=== PATIENT | male | born 1945 | race Caucasian/White ===

== ENCOUNTER 2017-03-01 08:48 | Emergency (ER) | payer MEDICARE, BC ==
[~2017-03-01] VITALS: Ht 175.3 cm; Wt 130.0 kg
[~2017-03-01 08:48] MED LIST: ADULT ASPIRIN E81 MG PO; ANTIVERT PO; BENZONATATE200 MG PO; CALCIUM600 M2 PO; DOXYCYCL HYC100 MG PO; FLEXERIL10 MG PO; GLIMEPIRIDE4 MG PO; HYDRALAZINE25 MG PO; HYDROCHLOROT25 MG PO; IBUPROFEN400 MG PO; KLOR-CON M2020 MEQ PO; LABETALOL100 MG PO; LANTUS100 MG/ML IM; LANTUS100 MG/ML SC; LASIX 20 MG20 MG/TAB PO; LIPITOR40 MG PO; LOPID600 MG PO; LOSARTAN POT50 MG PO; METFORMIN HCL1000 MG PO; METOPROL TAR100 MG PO; NIFEDIPINE60 MG PO; OMEPRAZOLE20 MG PO; ONE TOUCH ULTRA 100 SC; PREDNISONE10 MG PO; VITAMIN C500 M1 PO; ZITHROMAX250 MG PO
[2017-03-01 09:28] LABS: HEMATOCRIT 34.7 % (39.0-50.0); HEMOGLOBIN 11.1 g/dl (14.0-18.0); IMMATURE GRANULOCYTES 0.3 % (0.0-1.0); MEAN CELL VOLUME 82.6 fL CALC (80.0-100.0); MEAN CORPUSCULAR HGB 26.4 pG CALC (26.0-32.0); NEUT# 5.16 thou/uL (1.82-7.42); RED BLOOD COUNT 4.2 mill/uL (4.70-6.10); RED CELL DISTRI WIDTH 15.3 % (11.5-15.5)
[2017-03-01 09:49] LABS: ALBUMIN 4.6 g/dL (3.2-5.0); ALKALINE PHOSPHATASE 83 u/l (38-126); ANION GAP 19 (6-22 (CALC)); BILIRUBIN, TOTAL 0.5 mg/dL (0.0-1.4); BUN 13 mg/dL (8-23); BUN/CREATININE RATIO 18 (12-20 (CALC)); CALCIUM 9.8 mg/dL (8.4-10.2); CARBON DIOXIDE 22 mmol/l (22-30); CHLORIDE 107 mmol/l (95-108); CREATININE 0.7 mg/dL (0.7-1.3); GFR > 60 ML/MIN (>=60 (CALC)); GFR FOR AFR.AMER. > 60 ML/MIN (>=60 (CALC)); GLUCOSE 138 mg/dL (82-115); POTASSIUM 4.1 mmol/l (3.5-5.1); SGOT/AST 27 u/l (19-48); SGPT/ALT 35 u/l (11-66); SODIUM 144 mmol/l (137-146); TOTAL PROTEIN 7.8 g/dL (6.3-8.2)
[2017-03-01] MEDS ORDERED: CRESTOR40 MG PO (10:57)
[2017-03-01] MEDS ORDERED: CARVEDILOL25 MG PO (10:59)
[2017-03-01] MEDS ORDERED: FUROSEMIDE20 MG PO (11:08)
[2017-03-01] MEDS ORDERED: PAXIL40 MG PO (11:14)
[2017-03-01 11:32] VITALS: BP 160/70
== END 2017-03-01 11:34 | disposition home or self-care (01) ==
LOC: ED 08:48
PROVIDERS: Emergency Medicine
DX: I50.9 Heart failure, unspecified (principal); R06.02 Shortness of breath; I10 Essential (primary) hypertension; E11.9 Type 2 diabetes mellitus without complications; Z79.84 Long term (current) use of oral hypoglycemic drugs; Z95.0 Presence of cardiac pacemaker

== ENCOUNTER 2017-04-24 05:56 | Observation (INO) | payer MEDICARE, BC ==
[~2017-04-24] VITALS: Ht 175.3 cm; Wt 130.4 kg
[~2017-04-24 05:56] MED LIST changes: +CARVEDILOL25 MG PO; +CRESTOR40 MG PO; +FUROSEMIDE20 MG PO; -LANTUS100 MG/ML SC; +LANTUS100 UNIT/M SC; +PAXIL40 MG PO
[2017-04-24] MEDS ORDERED: AMLODIPINE5 MG PO (06:17)
--- NOTE | 2017-04-24 06:17 | NUR ---
PT AMBULATED TO ROOM
--- NOTE | 2017-04-24 06:26 | NUR ---
Pt on too, setting in semi-fowlers position, spouse with patient. States was diagnosed with flu last thursday. Given Tamiflu and not getting better. Ears, throat, painful.
[2017-04-24 07:02] LABS: INFLUENZA A NONE DETECTED (NONE DETECT); INFLUENZA B NONE DETECTED (NONE DETECT)
--- NOTE | 2017-04-24 07:15 | NUR ---
PT RESTING ON STRETCHER, INTERMITTENT COUGH NOTED, DENIES COMPLAINTS, COMFORT MEASURES PROVIDED, CALL DELEON WITHIN REACH
[2017-04-24 07:17] LABS: HEMATOCRIT 35.3 % (39.0-50.0); HEMOGLOBIN 11.3 g/dl (14.0-18.0); IMMATURE GRANULOCYTES 0.2 % (0.0-1.0); MEAN CELL VOLUME 80.6 fL CALC (80.0-100.0); MEAN CORPUSCULAR HGB 25.8 pG CALC (26.0-32.0); NEUT# 2.55 thou/uL (1.82-7.42); RED BLOOD COUNT 4.38 mill/uL (4.70-6.10); RED CELL DISTRI WIDTH 15.8 % (11.5-15.5)
[2017-04-24 07:27] LABS: ALBUMIN 4.1 g/dL (3.2-5.0); ALKALINE PHOSPHATASE 87 u/l (38-126); ANION GAP 19 (6-22 (CALC)); BILIRUBIN, TOTAL 0.3 mg/dL (0.0-1.4); BUN 13 mg/dL (8-23); BUN/CREATININE RATIO 15 (12-20 (CALC)); CARBON DIOXIDE 27 mmol/l (22-30); CHLORIDE 100 mmol/l (95-108); CREATININE 0.8 mg/dL (0.7-1.3); GFR > 60 ML/MIN (>=60 (CALC)); GFR FOR AFR.AMER. > 60 ML/MIN (>=60 (CALC)); POTASSIUM 4.4 mmol/l (3.5-5.1); SGOT/AST 62 u/l (19-48); SGPT/ALT 51 u/l (11-66); SODIUM 142 mmol/l (137-146); TOTAL PROTEIN 6.8 g/dL (6.3-8.2)
--- NOTE | 2017-04-24 08:00 | NUR ---
PT RESTIGN IN BED AWARE OF PENMDING ADMISSION, ROOM ASSIGNMENT REC'D, CALL DELEON WITHIN REACH
--- NOTE | 2017-04-24 08:45 | NUR ---
PT SET UP WITH AM JUAN TOOK AM HOME MEDICATIONS PER PT, CALL DELEON WITHIN REACH
--- NOTE | 2017-04-24 09:12 | NUR ---
Admission Note Report Given to: AILEEN Transported by: Wheelchair X Stretcher Transported with: X Nurse Transporter X Patent IV O2 X Marketing Systems Manager
--- NOTE | 2017-04-24 09:15 | NUR ---
FROM ER VIA STRETCHER ACCOMPANIED BY SHARON REGAN. AMBULTED TO BED WITH STEADY GAIT. RESPS EVEN AND UNLABORED ON ROOM AIR, TELE MONITOR IN PLACE. #20 RAC INFUSING WITHOUT DIFFICULTY, SITE APPEARS HEALTHY. PO FLUIDS OFFERED. DENIES PAIN OR DISCOMFORT. ORIENTED TO ROOM AND CALL SYSTEM. SAFETY PRECAUTIONS REINFORCED. BED IN LOWEST POSITION WITH WHEELS LOCKED. CALL LIGHT WITHIN REACH. ENCOURAGED PT TO CALL FOR ANY NEEDS.
[2017-04-24 09:28] VITALS: BP 146/76
[2017-04-24 11:04] VITALS: BP 173/68
--- NOTE | 2017-04-24 12:00 | NUR ---
SITTING ON EDGE OF BED EATING LUNCH. RESPS EVEN AND UNLABORED ON ROOM AIR, TELE MONITOR IN PLACE. VOICES NO NEEDS AT THIS TIME. AT BEDSIDE. CALL LIGHT WITHIN REACH. ENCOURAGED PT AND TO CALL FOR ANY NEEDS.
[2017-04-24] MEDS ORDERED: LANTUS100 UNIT/M SC (12:03)
[2017-04-24 12:19] LABS: CHOLESTEROL HDL RATIO 4.6 (<4.4 (CALC))
[2017-04-24 14:35] VITALS: BP 163/62
--- NOTE | 2017-04-24 15:40 | NUR ---
Visited pt room for rounding. Pt said abx must have worked real good because he is feeling 100% better. Explained to pt that he will still get abx for a few more days to make sure he gets enough meds to kill entire infection. Also let pt know that he is currently on doxycycline and reviewed instructions on how to take it (w/ glass of water, do not lie down for 30 mins, separate from antacids/anything containing calcium for 2 hrs) in case he gets discharged on it. Reviewed that he can get diarrhea from abx and that taking meds w/ food or probiotics may help. Also let pt know that lantus has been substituted for levemir, and atorvastatin has been substituted for atorvastatin. Pt said that he was taken off of atorvastatin b/c it gave him muscle pain, but said is fine to take it for one day and should not be a problem. Also let him know that amlodipine, calcium, vit C, potassium, gemfibrozil, and omeprazole have all been held. Explained that he is currently being prescribed a steroid which can increase blood sugar and he said that he will monitor his blood sugar and adjust his lantus if necessary once back home. No questions or additional concerns.
[2017-04-24 15:45] VITALS: BP 167/79
--- NOTE | 2017-04-24 15:50 | NUR ---
DR BENDER IN WITH PT, NEW ORDERS RECEIVED.
--- NOTE | 2017-04-24 16:00 | NUR ---
SITTING IN BEDSIDE CHAIR WITH EYES CLOSED, AWAKENS EASILY. RESPS EVEN AND UNLABORED ON ROOM AOR, TELE MONITOR IN PLACE. DENIES PAIN OR DISCOMFORT. CALL LIGHT WITHIN REACH. WILL CONTINUE TO MONITOR.
[2017-04-24 19:03] VITALS: BP 164/68
--- NOTE | 2017-04-24 19:55 | NUR ---
PT OOB IN BEDSIDE CHAIR. PT DENIES PAIN OR DISCOMFORT. RESP EVEN AND UNLABORED; NO DISTRESS NOTED. TELE IN PLACE. ABD DISTENDED;SOFT. ACTIVE BOWEL SOUNDS NOTED. TRACE ANKLE EDEMA NOTED BILAT. PEDAL PULSES PALPATED BILAT. IV RAC FLUSHED WITHOUT DIFFICULTY. SAFETY PRECAUTIONS REINFORCED. FREQUENT ROUNDS MADE. CALL LIGHT WITHIN REACH.
--- NOTE | 2017-04-25 00:20 | NUR ---
RESP EVEN AND UNLABORED WITH CPAP IN PLACE. NO DISTRESS NOTED. TELE IN PLACE. CALL LIGHT WITHIN REACH.
--- NOTE | 2017-04-25 04:05 | NUR ---
TELE IN PLACE. RESP EVEN AND UNLABORED; NO DISTRESS NOTED. ASSESSMENT UNCHANGED. CALL LIGHT WITHIN REACH.
[2017-04-25 05:25] VITALS: BP 151/75
[2017-04-25 06:29] LABS: HEMATOCRIT 36.4 % (39.0-50.0); HEMOGLOBIN 11.6 g/dl (14.0-18.0); IMMATURE GRANULOCYTES 0.2 % (0.0-1.0); MEAN CELL VOLUME 80.7 fL CALC (80.0-100.0); MEAN CORPUSCULAR HGB 25.7 pG CALC (26.0-32.0); MEAN CORPUSCULAR HGB CONC 31.9 g/L CALC (32.0-36.0); NEUT# 3.38 thou/uL (1.82-7.42); RED BLOOD COUNT 4.51 mill/uL (4.70-6.10); RED CELL DISTRI WIDTH 15.7 % (11.5-15.5)
[2017-04-25 06:39] LABS: ANION GAP 20 (6-22 (CALC)); BUN 17 mg/dL (8-23); BUN/CREATININE RATIO 22 (12-20 (CALC)); CARBON DIOXIDE 23 mmol/l (22-30); CHLORIDE 102 mmol/l (95-108); CREATININE 0.8 mg/dL (0.7-1.3); GFR > 60 ML/MIN (>=60 (CALC)); GFR FOR AFR.AMER. > 60 ML/MIN (>=60 (CALC)); MAGNESIUM 1.7 mg/dL (1.6-2.3); POTASSIUM 4.4 mmol/l (3.5-5.1); SODIUM 141 mmol/l (137-146)
--- NOTE | 2017-04-25 07:00 | NUR ---
RECEIVED BEDSIDE REPORT FROM MANDI LAZAR. SITTING IN BEDSIDE CHAIR WATCHING TV. RESPS EVEN AND UNLABORED ON ROOM AIR, TELE MONITOR IN PLACE. VOICES NO NEEDS AT THIS TIME. PLAN OF CARE DISCUSSED. SAFETY PRECAUTIONS REINFORCED. BED IN LOWEST POSITION WITH WHEELS LOCKED. CALL LIGHT WITHIN REACH. ENCOURAGED PT TO CALL FOR ANY NEEDS.
[2017-04-25 07:53] VITALS: BP 178/66
--- NOTE | 2017-04-25 10:00 | NUR ---
AMBULATING IN HALLWAY WITH STEADY GAIT ACCOMPANIED BY . RESPS EVEN AND UNLABORED ON ROOM AIR, TELE MONITOR IN PLACE. TOLERATING WITHOUT DIFFICULTY. CALL LIGHT WITHIN REACH.
[2017-04-25 11:02] VITALS: BP 182/71
--- NOTE | 2017-04-25 12:10 | NUR ---
DR BENDER IN WITH PT, NEW ORDERS RECEIVED.
[2017-04-25] MEDS ORDERED: ROBITUSSIN AC10 ML PO (12:58)
[2017-04-25] MEDS ORDERED: PREDNISONE10 MG PO (12:58)
[2017-04-25] MEDS ORDERED: VIBRAMYCIN100 M2 PO (12:58)
--- NOTE | 2017-04-25 13:45 | NUR ---
Discharge instructions given. Patient verbalizes understanding of same. Discharged in stable condition via Wheelchair to Home with spouse. All belongings sent with pt.
== END 2017-04-25 13:45 | disposition home or self-care (01) ==
LOC: ED 05:56 → ED-I 07:23 → ED 07:35 → MS2 07:36
PROVIDERS: Emergency Medicine; Nurse Practitioner Family; ADMIT Internal Medicine; ATTEND Internal Medicine
DX: J18.9 Pneumonia, unspecified organism (principal); E11.9 Type 2 diabetes mellitus without complications; G47.33 Obstructive sleep apnea (adult) (pediatric); I10 Essential (primary) hypertension; D64.9 Anemia, unspecified; I25.10 Atherosclerotic heart disease of native coronary artery without angina pectoris; E78.5 Hyperlipidemia, unspecified; R42 Dizziness and giddiness; Z95.0 Presence of cardiac pacemaker; Z79.4 Long term (current) use of insulin; Z87.891 Personal history of nicotine dependence; Z91.14 Patient's other noncompliance with medication regimen; Z68.41 Body mass index [BMI] 40.0-44.9, adult
CPT/HCPCS: G0378

== ENCOUNTER 2017-05-16 19:42 | Emergency (ER) | payer MEDICARE, BC ==
[~2017-05-16] VITALS: Ht 175.3 cm; Wt 132.2 kg
[~2017-05-16 19:42] MED LIST changes: +AMLODIPINE5 MG PO; +ROBITUSSIN AC10 ML PO; +VIBRAMYCIN100 M2 PO
[2017-05-16 22:39] LABS: INFLUENZA A NONE DETECTED (NONE DETECT); INFLUENZA B NONE DETECTED (NONE DETECT)
[2017-05-17] MEDS ORDERED: AMOXICILLIN500 MG PO (00:12)
[2017-05-17] MEDS ORDERED: CODEINE/GUAIFEN1 SOL PO (00:12)
[2017-05-17 00:45] VITALS: BP 168/75
== END 2017-05-17 00:45 | disposition home or self-care (01) ==
LOC: ED 19:42
PROVIDERS: Emergency Medicine
DX: J40 Bronchitis, not specified as acute or chronic (principal); R05 Cough; R50.9 Fever, unspecified; R09.89 Other specified symptoms and signs involving the circulatory and respiratory systems

== ENCOUNTER 2020-06-30 20:05 | Observation (INO) | payer MEDICARE, BC ==
[~2020-06-30] VITALS: Ht 175.3 cm; Wt 132.0 kg
[~2020-06-30 20:05] MED LIST changes: +AMOXICILLIN500 MG PO; +CODEINE/GUAIFEN1 SOL PO
[2020-06-30 20:56] LABS: HEMATOCRIT 38.4 % (39.0-50.0); HEMOGLOBIN 12.4 g/dl (14.0-18.0); IMMATURE GRANULOCYTES 0.3 % (0.0-5.0); MEAN CELL VOLUME 88.7 fL CALC (80.0-100.0); MEAN CORPUSCULAR HGB 28.6 pG CALC (26.0-32.0); MEAN CORPUSCULAR HGB CONC 32.3 g/dL CAL (32.0-36.0); NEUT# 3.61 thou/uL (1.82-7.42); RED BLOOD COUNT 4.33 mill/uL (4.70-6.10); RED CELL DISTRI WIDTH 14.7 % (11.5-15.5)
[2020-06-30 21:11] LABS: ALBUMIN 4.8 g/dL (3.2-5.0); ALKALINE PHOSPHATASE 135 u/l (38-126); ANION GAP 16 (6-22 (CALC)); BILIRUBIN, TOTAL 0.7 mg/dL (0.0-1.4); BUN 18 mg/dL (8-23); BUN/CREATININE RATIO 18 (12-20 (CALC)); CARBON DIOXIDE 26 mmol/l (22-30); CHLORIDE 103 mmol/l (95-108); GFR > 60 ML/MIN (>=60 (CALC)); GFR FOR AFR.AMER. > 60 ML/MIN (>=60 (CALC)); POTASSIUM 4.2 mmol/l (3.5-5.1); SGOT/AST 70 u/l (19-48); SODIUM 140 mmol/l (137-146); TOTAL PROTEIN 8.6 g/dL (6.3-8.2)
[2020-06-30 21:13] LABS: ACT PARTIAL THROMBO TIME 26.3 SECONDS (20.0-32.5); INTERNATIONAL NORMALIZED RATIO 1.2 RATIO (0.7-1.3); PROTHROMBIN TIME 12.6 SECONDS (9.0-12.5)
[2020-06-30 21:22] LABS: MYOGLOBIN 70 ng/mL (0 - 121)
[2020-06-30 21:26] LABS: D-DIMER 0.32 mg/L (0.19-0.60)
[2020-06-30] MEDS ORDERED: GUANFACINE2 MG PO (21:33)
[2020-06-30] MEDS ORDERED: VALSARTAN320 MG (21:33)
[2020-06-30] MEDS ORDERED: LEVOTHYROXIN50 MCG PO (21:33)
[2020-06-30 23:45] VITALS: BP 148/62
[2020-07-01 04:25] VITALS: BP 153/63
[2020-07-01 07:20] LABS: ANION GAP 14 (6-22 (CALC)); BUN 17 mg/dL (8-23); BUN/CREATININE RATIO 21 (12-20 (CALC)); CARBON DIOXIDE 25 mmol/l (22-30); CHLORIDE 102 mmol/l (95-108); CREATININE 0.8 mg/dL (0.7-1.3); GFR > 60 ML/MIN (>=60 (CALC)); GFR FOR AFR.AMER. > 60 ML/MIN (>=60 (CALC)); POTASSIUM 3.9 mmol/l (3.5-5.1); SODIUM 138 mmol/l (137-146)
[2020-07-01 08:00] VITALS: BP 169/70
[2020-07-01] MEDS ORDERED: DIOVAN320 MG PO (08:26)
[2020-07-01] MEDS ORDERED: LANTUS100 UNIT/M SC (08:26)
[2020-07-01] MEDS ORDERED: GUANFACINE2 MG PO (08:26)
[2020-07-01] MEDS ORDERED: CARVEDILOL25 MG PO (08:26)
[2020-07-01] MEDS ORDERED: AMLODIPINE BESY10 MG PO (08:27)
[2020-07-01 10:43] VITALS: BP 179/70
== END 2020-07-01 11:31 | disposition home or self-care (01) ==
LOC: ED 20:05 → ED-I 22:34 → ED 22:43 → MS2 22:44
PROVIDERS: Family Medicine; ADMIT Internal Medicine; ATTEND Internal Medicine
DX: I11.0 Hypertensive heart disease with heart failure (principal); I50.9 Heart failure, unspecified; E11.9 Type 2 diabetes mellitus without complications; I25.10 Atherosclerotic heart disease of native coronary artery without angina pectoris; E03.9 Hypothyroidism, unspecified; I49.5 Sick sinus syndrome; G47.33 Obstructive sleep apnea (adult) (pediatric); E78.5 Hyperlipidemia, unspecified; Z95.0 Presence of cardiac pacemaker; Z79.4 Long term (current) use of insulin; Z86.79 Personal history of other diseases of the circulatory system; Z20.822 Contact with and (suspected) exposure to COVID-19
CPT/HCPCS: G0378; J1650

== ENCOUNTER 2022-05-23 20:02 | Emergency (ER) | payer MEDICARE, BC ==
[~2022-05-23] VITALS: Ht 175.3 cm; Wt 129.0 kg
[2022-05-23] VITALS (9 sets, daily range): BP systolic 137–156; BP diastolic 49–72
[~2022-05-23 20:02] MED LIST changes: +AMLODIPINE BESY10 MG PO; +DIOVAN320 MG PO; +GUANFACINE2 MG PO; +LEVOTHYROXIN50 MCG PO; +VALSARTAN320 MG
[2022-05-23 21:55] LABS: BASO% 0.6 % (0-3); EOS% 2.8 % (0-8); HEMATOCRIT 37.6 % (39.0-50.0); IMMATURE GRANULOCYTES 0.2 % (0.0-5.0); MEAN CELL VOLUME 88.7 fL CALC (80.0-100.0); MEAN CORPUSCULAR HGB 28.3 pG CALC (26.0-32.0); MEAN CORPUSCULAR HGB CONC 31.9 g/dL CAL (32.0-36.0); MONO% 11.5 % (2-13); NEUT# 3.73 thou/uL (1.82-7.42); NEUT% 57.9 % (42-76); RED BLOOD COUNT 4.24 mill/uL (4.70-6.10); RED CELL DISTRI WIDTH 13.5 % (11.5-15.5)
[2022-05-23 22:07] LABS: ALBUMIN 4.7 g/dL (3.2-5.0); ALKALINE PHOSPHATASE 109 u/l (38-126); ANION GAP 16 (6-22 (CALC)); BUN 29 mg/dL (8-23); BUN/CREATININE RATIO 20 (12-20 (CALC)); CARBON DIOXIDE 24 mmol/l (22-30); CHLORIDE 103 mmol/l (95-108); CREATININE 1.4 mg/dL (0.7-1.3); GFR FOR AFR.AMER. 59 ML/MIN (>=60 (CALC)); GFR OTHER RACES 49 ML/MIN (>=60 (CALC)); POTASSIUM 4.8 mmol/l (3.5-5.1); SGOT/AST 55 u/l (19-48); SODIUM 139 mmol/l (137-146); TOTAL PROTEIN 8.2 g/dL (6.3-8.2)
[2022-05-23 22:08] LABS: BILIRUBIN, TOTAL 0.3 mg/dL (0.2-1.3)
[2022-05-23] MEDS ORDERED: MECLIZINE25 MG PO (23:35)
[2022-05-24 00:04] VITALS: BP 143/51
== END 2022-05-24 00:09 | disposition home or self-care (01) ==
LOC: ED 20:02
PROVIDERS: Family Medicine
DX: R42 Dizziness and giddiness (principal); I10 Essential (primary) hypertension; E11.9 Type 2 diabetes mellitus without complications; E78.00 Pure hypercholesterolemia, unspecified; Z79.4 Long term (current) use of insulin; Z20.822 Contact with and (suspected) exposure to COVID-19

== ENCOUNTER 2023-05-05 05:23 | Observation (INO) | payer MEDICARE, BC ==
[2023-05-05] VITALS (9 sets, daily range): BP systolic 134–166; BP diastolic 54–75
[~2023-05-05] VITALS: Ht 175.3 cm; Wt 145.6 kg
[~2023-05-05 05:23] MED LIST changes: +MECLIZINE25 MG PO
--- NOTE | 2023-05-05 05:30 | NUR ---
PATIENT TO ROOM 8 VIA WHEELCHAIR. AT [facility].
--- NOTE | 2023-05-05 06:30 | NUR ---
PATIENT RESTING, AT BEDSIDE. AWAITING RESULTS.
[2023-05-05 07:42] LABS: BASO% 0.4 % (0-3); EOS% 1.5 % (0-8); HEMATOCRIT 36.2 % (39.0-50.0); HEMOGLOBIN 11.5 g/dl (14.0-18.0); IMMATURE GRANULOCYTES 0.2 % (0.0-5.0); LYMPH% 13.6 % (15-41); MEAN CELL VOLUME 86.8 fL CALC (80.0-100.0); MEAN CORPUSCULAR HGB 27.6 pG CALC (26.0-32.0); MEAN CORPUSCULAR HGB CONC 31.8 g/dL CAL (32.0-36.0); MONO% 10.9 % (2-13); NEUT# 7.31 thou/uL (1.82-7.42); NEUT% 73.4 % (42-76); RED BLOOD COUNT 4.17 mill/uL (4.70-6.10); RED CELL DISTRI WIDTH 14.9 % (11.5-15.5)
[2023-05-05 08:07] LABS: INTERNATIONAL NORMALIZED RATIO 1.3 RATIO (0.7-1.3); PROTHROMBIN TIME 12.2 SECONDS (9.0-12.5)
[2023-05-05 08:12] LABS: ALBUMIN 4.4 g/dL (3.2-5.0); ALKALINE PHOSPHATASE 137 u/l (38-126); ANION GAP 14 (6-22 (CALC)); BILIRUBIN, TOTAL 0.5 mg/dL (0.2-1.3); BUN 19 mg/dL (8-23); BUN/CREATININE RATIO 15 (12-20 (CALC)); CARBON DIOXIDE 26 mmol/l (22-30); CHLORIDE 106 mmol/l (95-108); CREATININE 1.2 mg/dL (0.7-1.3); GFR FOR AFR.AMER. > 60 ML/MIN (>=60 (CALC)); GFR OTHER RACES 58 ML/MIN (>=60 (CALC)); POTASSIUM 4.7 mmol/l (3.5-5.1); SGOT/AST 46 u/l (19-48); SODIUM 142 mmol/l (137-146); TOTAL PROTEIN 7.8 g/dL (6.3-8.2)
[2023-05-05] MEDS ORDERED: FUROSEMIDE 40 MG/4 ML SDV IV ONE (08:55)
--- NOTE | 2023-05-05 10:00 | NUR ---
PT REPORT RECIEVED FROM MORNING NURSE. CARE IS ACCEPTED. VSS. PT DENIESN ANY NEEDS AT THIS TIME.
[2023-05-05] MEDS ORDERED: OZEMPIC2 MG SC (10:24)
--- NOTE | 2023-05-05 10:30 | NUR ---
PT MEDICATED WITH IV LASIX TOLERATED WELL, IV SITE INTACT. CALL DELEON IN REACH
[2023-05-05] MEDS ORDERED: MAGNESIUM HYDROXIDE 30 ML UDC PO PRN (11:00)
[2023-05-05] MEDS ORDERED: ACETAMINOPHEN 325 MG/TAB PO PRN (11:00)
--- NOTE | 2023-05-05 11:06 | NUR ---
PT TJ DON THE NEEDS FOR A URINE SAMPL. URINE CUP PROVIDED.
[2023-05-05] MEDS ORDERED: LEVOTHYROXINE SODIUM 50 MCG/TAB PO SCH (12:00)
[2023-05-05] MEDS ORDERED: amLODIPine BESYLATE 5 MG/TAB PO SCH (12:00)
[2023-05-05] MEDS ORDERED: PANTOPRAZOLE SODIUM Sesquihydr 40 MG/TAB PO SCH (12:00)
[2023-05-05] MEDS ORDERED: metFORMIN HYDROCHLORIDE 500 MG/TAB PO SCH (12:00)
[2023-05-05] MEDS ORDERED: ASPIRIN EC 81 MG/TAB PO SCH (12:00)
[2023-05-05] MEDS ORDERED: PARoxetine 10 MG/TAB PO SCH (12:00)
--- NOTE | 2023-05-05 12:00 | NUR ---
PT SITTING IN BED. VSS. PT DENIES ANY NEEDS TA THIS TIME.
[2023-05-05] MEDS ORDERED: LOSARTAN Potassium 50 MG/TAB PO SCH (13:00)
--- NOTE | 2023-05-05 13:00 | NUR ---
PT UODATED ON CONTINUED WAIT TIME. PT STATES UNDERSTANDING AND DENIES ANY NEEDS AT THIS TIME.
--- NOTE | 2023-05-05 14:14 | NUR ---
PT RESTING IN BED. VSS. AT BEDSIDE. PT DENIES ANY NEEDS AT THSI TIME.
--- NOTE | 2023-05-05 15:38 | NUR ---
pt report called and given to selin on medsurg. pt being taken up via wheelchair.
[2023-05-05] MEDS ORDERED: FUROSEMIDE 40 MG/4 ML SDV IV SCH (16:00)
--- NOTE | 2023-05-05 17:00 | NUR ---
PT ARRIVED TO THE UNIT AOX4, BP 166/75, HR 69, O2 AT 95% ON RA, TEMP 97.6. RESPIRATIONS ARE EVEN AND UNLABORED, LUNGS ARE DIM BILATERAL BASES, +1 PITTING EDEMA NOTED TO BILATERAL FEET, PEDAL PULSES PRESENT TO TOUCH, PT DENIES PAIN AT THIS TIME.
[2023-05-05 17:38] LABS: URINE BILIRUBIN - DIPSTICK Negative (NEGATIVE); URINE BLOOD DIPSTICK Negative (NEGATIVE); URINE COLOR Yellow; URINE GLUCOSE - DIPSTICK Negative (NEGATIVE); URINE KETONE Negative (NEGATIVE); URINE LEUK ESTERASE Negative (NEGATIVE); URINE NITRITE - DIPSTICK Negative (Negative); URINE PH 5.5 (4.5-8.0); URINE PROTEIN - DIPSTICK Negative (NEG-TRACE); URINE SPECIFIC GRAVITY 1.015; URINE UROBILINOGEN - DIPSTICK 0.2 E.U./dL (0.2)
--- NOTE | 2023-05-05 19:50 | NUR ---
Bedside report completed for this patient and sitting up in chair at bedside with no distress noted. Call light within reah. Will continue to observe.
[2023-05-05] MEDS ORDERED: ENOXAPARIN SODIUM 40 MG/0.4 ML SYR SC SCH (21:00)
[2023-05-05] MEDS ORDERED: CARVEDILOL 25 MG/TAB PO SCH (21:00)
[2023-05-05] MEDS ORDERED: INSULIN DETEMIR 100 UNITS/ML SC SCH (21:00)
[2023-05-06 04:52] VITALS: BP 133/52
--- NOTE | 2023-05-06 05:14 | NUR ---
PT DAILY WEIGHT WAS NOT OBTAINED DUE TO UNIT STANDING SCALE NOT WORKING. SHEREEN ZHU NOTIFIED.
[2023-05-06 07:10] LABS: BASO% 0.6 % (0-3); EOS% 2.3 % (0-8); HEMATOCRIT 33.4 % (39.0-50.0); HEMOGLOBIN 10.7 g/dl (14.0-18.0); IMMATURE GRANULOCYTES 0.1 % (0.0-5.0); MEAN CELL VOLUME 86.3 fL CALC (80.0-100.0); MEAN CORPUSCULAR HGB 27.6 pG CALC (26.0-32.0); MONO% 13.9 % (2-13); NEUT# 3.8 thou/uL (1.82-7.42); NEUT% 55.1 % (42-76); RED BLOOD COUNT 3.87 mill/uL (4.70-6.10); RED CELL DISTRI WIDTH 14.6 % (11.5-15.5)
[2023-05-06 08:03] LABS: ALKALINE PHOSPHATASE 102 u/l (38-126); ANION GAP 13 (6-22 (CALC)); BILIRUBIN, TOTAL 0.6 mg/dL (0.2-1.3); BUN 23 mg/dL (8-23); BUN/CREATININE RATIO 18 (12-20 (CALC)); CARBON DIOXIDE 26 mmol/l (22-30); CHLORIDE 104 mmol/l (95-108); CREATININE 1.3 mg/dL (0.7-1.3); GFR FOR AFR.AMER. > 60 ML/MIN (>=60 (CALC)); GFR OTHER RACES 53 ML/MIN (>=60 (CALC)); MAGNESIUM 1.8 mg/dL (1.6-2.3); POTASSIUM 3.8 mmol/l (3.5-5.1); SGOT/AST 40 u/l (19-48); SODIUM 139 mmol/l (137-146); TOTAL PROTEIN 6.7 g/dL (6.3-8.2)
--- NOTE | 2023-05-06 10:13 | NUR ---
BOOKED A CARDIOLOGY CONSULT WITH DR PARDO VIA THE [facility] AT 1013 HRS.
[2023-05-06 10:27] VITALS: BP 142/59
--- NOTE | 2023-05-06 10:36 | NUR ---
[facility] PT BED[facility]IDE.
--- NOTE | 2023-05-06 11:29 | NUR ---
DR CAMPOS AT BEDSIDE DISCUSSING PLAN OF CARE WITH PT AT THIS TIME.
[2023-05-06] MEDS ORDERED: FUROSEMIDE20 MG PO (12:11)
--- NOTE | 2023-05-06 13:45 | NUR ---
DISCHARGE INSTRUCTIONS DISCUSSED WITH PT. TELE BOX REMOVED AND PLACED IN BOX AT NURSES STATION.
--- NOTE | 2023-05-06 14:03 | NUR ---
PT LEFT THE FLOOR VIA WHEELCHAIR TRANSPORT WITH BELONGINGS IN HAND.
== END 2023-05-06 14:01 | disposition home or self-care (01) ==
LOC: ED 05:23 → ED-I 09:00 → ED 10:16 → MS2 10:17
PROVIDERS: Emergency Medicine; Nurse Practitioner Family; ADMIT Student in an Organized Health Care Education/Training Program; ATTEND Student in an Organized Health Care Education/Training Program
DX: I13.0 Hypertensive heart and chronic kidney disease with heart failure and stage 1 through stage 4 chronic kidney disease, or unspecified chronic kidney disease (principal); I50.33 Acute on chronic diastolic (congestive) heart failure; E11.22 Type 2 diabetes mellitus with diabetic chronic kidney disease; N18.31 Chronic kidney disease, stage 3a; I25.10 Atherosclerotic heart disease of native coronary artery without angina pectoris; D64.9 Anemia, unspecified; E78.5 Hyperlipidemia, unspecified; E03.9 Hypothyroidism, unspecified; G47.33 Obstructive sleep apnea (adult) (pediatric); Z79.84 Long term (current) use of oral hypoglycemic drugs; Z79.4 Long term (current) use of insulin; Z95.0 Presence of cardiac pacemaker; Z95.828 Presence of other vascular implants and grafts
CPT/HCPCS: J1650

== ENCOUNTER 2024-04-12 18:16 | Emergency (ER) | payer MEDICARE, BC ==
[2024-04-12] VITALS (15 sets, daily range): BP systolic 170–206; BP diastolic 66–87
[~2024-04-12] VITALS: Ht 175.3 cm; Wt 179.0 kg
[~2024-04-12 18:16] MED LIST changes: +OZEMPIC2 MG SC
[2024-04-12 18:59] LABS: URINE BILIRUBIN - DIPSTICK Negative (NEGATIVE); URINE BLOOD DIPSTICK Negative (NEGATIVE); URINE COLOR Yellow; URINE GLUCOSE - DIPSTICK >=1000 mg/dL (NEGATIVE); URINE KETONE Trace mg/dL (NEGATIVE); URINE LEUK ESTERASE Trace (NEGATIVE); URINE NITRITE - DIPSTICK Negative (Negative); URINE PH 5.5 (4.5-8.0); URINE PROTEIN - DIPSTICK 100 mg/dL (NEG-TRACE); URINE SPECIFIC GRAVITY 1.015; URINE UROBILINOGEN - DIPSTICK 0.2 E.U./dL (0.2)
[2024-04-12 19:01] LABS: BASO% 0.4 % (0-3); HEMATOCRIT 39.5 % (39.0-50.0); HEMOGLOBIN 12.4 g/dl (14.0-18.0); IMMATURE GRANULOCYTES 0.1 % (0.0-5.0); LYMPH% 29.2 % (15-41); MEAN CELL VOLUME 84.4 fL CALC (80.0-100.0); MEAN CORPUSCULAR HGB 26.5 pG CALC (26.0-32.0); MEAN CORPUSCULAR HGB CONC 31.4 g/dL CAL (32.0-36.0); MONO% 10.8 % (2-13); NEUT# 4.19 thou/uL (1.82-7.42); NEUT% 56.5 % (42-76); RED BLOOD COUNT 4.68 mill/uL (4.70-6.10); RED CELL DISTRI WIDTH 16.9 % (11.5-15.5)
[2024-04-12 19:05] LABS: URINE BACTERIA FEW hpf
[2024-04-12 19:06] LABS: URINE SPERM FEW hpf (NONE-RARE)
[2024-04-12 19:07] LABS: URINE SQUAMOUS EPITHELIAL CELL FEW EPI/hpf (0-FEW); URINE TRANSITIONAL EPI. CELLS FEW hpf
[2024-04-12] MEDS ORDERED: SODIUM CHLORIDE 0.9% 1,000 ML IV ONE (19:15)
[2024-04-12 19:19] LABS: ALBUMIN 4.5 g/dL (3.2-5.0); CREATININE 1.3 mg/dL (0.7-1.3); POTASSIUM 4.3 mmol/l (3.5-5.1); TOTAL PROTEIN 7.7 g/dL (6.3-8.2)
[2024-04-12 19:21] LABS: BILIRUBIN, TOTAL 0.6 mg/dL (0.2-1.3)
[2024-04-12] MEDS ORDERED: hydrALAZINE HCL 20 MG/ML VIAL(1 ML) IV ONE (21:00)
[2024-04-12] MEDS ORDERED: ONDANSETRON4 MG PO (21:34)
== END 2024-04-12 22:05 | disposition home or self-care (01) ==
LOC: ED 18:16
PROVIDERS: Family Medicine
DX: R42 Dizziness and giddiness (principal); R11.2 Nausea with vomiting, unspecified; I11.0 Hypertensive heart disease with heart failure; I50.9 Heart failure, unspecified; E11.9 Type 2 diabetes mellitus without complications; E78.5 Hyperlipidemia, unspecified; I25.10 Atherosclerotic heart disease of native coronary artery without angina pectoris; Z95.5 Presence of coronary angioplasty implant and graft; Z95.3 Presence of xenogenic heart valve; Z79.4 Long term (current) use of insulin; Z95.0 Presence of cardiac pacemaker; Z79.84 Long term (current) use of oral hypoglycemic drugs; Z20.822 Contact with and (suspected) exposure to COVID-19
CPT/HCPCS: J0360